=== PATIENT | male | born 1965 | race Caucasian/White ===

== ENCOUNTER → 2016-12-26 | Outpatient (REF) | payer OTHER ==
[~2016-12-26] MED LIST: APAP325T PO; ASPI81TA85 PO; CYCL10TA PO; DICL13PA TD; DICL75TA PO; EPIP0.3I2 IJ; ETOD30CA PO; ETOD400T PO; GABA600T PO; GLUC500T PO; IBUP200C PO; LYRI75CA PO; NEUR100C PO; NEUR600T PO; OMEP20CA3 PO; PRED10TA PO; RANI15TA PO; ROBA500T PO; ROBA750T4 PO; SKEL-29 PO; SOMA350T PO; TIZA4CAP3 PO; TRIA37.5 PO
[2016-12-26 19:26] LABS: BASO # 0.1 K/mm3 (0.0-0.2); BASO % 1.8 % (0.0-1.0); EOS # 0.1 K/mm3 (0.0-0.50); EOS % 1.3 % (0.0-3.0); LARGE UNSTAINED CELL # 0.1 K/mm3 (0.0-0.4); LARGE UNSTAINED CELL % 2.6 % (0.0-4.0); LYMPH # 1.6 K/mm3 (1.5-4.5); LYMPH % 27.3 % (24.0-44.0); MEAN CORPUSCULAR HGB CONC 33.3 g/dl (32.0-36.5); MEAN CORPUSCULAR VOLUME 87.1 fl (80.0-96.0); MONO # 0.5 K/mm3 (0.0-0.8); MONO % 8.4 % (0.0-5.0); NEUTROPHILS # 3.2 K/mm3 (1.8-7.7); NEUTROPHILS % 58.6 % (36.0-66.0); PLATELET COUNT, AUTOMATED 167 k/mm3 (150-450); RED CELL DISTRIBUTION WIDTH 13.4 % (11.5-14.5); WHITE BLOOD COUNT 5.5 K/mm3 (4.0-10.0)
[2016-12-26 20:00] LABS: ALBUMIN 3.9 GM/DL (3.2-5.2); ALBUMIN/GLOBULIN RATIO 1.26 (1.00-1.93); ALKALINE PHOSPHATASE 85 U/L (45-117); ALT/SGPT 55 U/L (12-78); ANION GAP 7 MEQ/L (8-16); AST/SGOT 34 U/L (15-37); BILIRUBIN,TOTAL 0.4 MG/DL (0.2-1.0); BLOOD UREA NITROGEN 13 MG/DL (7-18); CARBON DIOXIDE LEVEL 30 MEQ/L (21-32); CHLORIDE LEVEL 103 MEQ/L (98-107); CREATININE FOR GFR 0.87 MG/DL (0.70-1.30); GLOMERULAR FILTRATION RATE > 60.0 (>56); GLUCOSE, FASTING 76 MG/DL (70-105); PERCENT SATURATION 18.9 % (19.7-37.4); POTASSIUM SERUM 3.6 MEQ/L (3.5-5.1); SODIUM LEVEL 140 MEQ/L (136-145); TOTAL IRON BINDING CAPACITY 297 UG/DL (250-450)
[2016-12-26 20:49] LABS: ERYTHROCYTE SEDIMENTATION RATE 13 mm/hr (0-20)
[2016-12-29 00:06] LABS: Lyme Disease IgG/IgM Antibodie <0.91 ISR (0.00-0.90); Lyme Disease IgM Ab Quantitati <0.80 index (0.00-0.79)
== END ==
LOC: M LABDRAW1 16:54
PROVIDERS: ATTEND Internal Medicine Rheumatology
DX: M17.0 Bilateral primary osteoarthritis of knee (principal); M51.36 Other intervertebral disc degeneration, lumbar region; R53.83 Other fatigue; M35.9 Systemic involvement of connective tissue, unspecified; E83.110 Hereditary hemochromatosis

== ENCOUNTER → 2017-01-06 | Outpatient (CLI) | payer OTHER ==
--- NOTE | 2017-01-06 10:35 | REP ---
CT CERVICAL SPINE WITHOUT CONTRAST: HISTORY: Spondylosis. COMPARISON: MR 11/23/2016. Disc bulges are present at the C5-6 and C6-7 levels. These are better seen in the recent MR examination. There is minimal narrowing of the spinal canal. There is no other disc bulge or herniation. The neural foramina are patent. The C5-6 and C6-7 intervertebral discs are decreased in height consistent with disc degeneration. Anterior osteophytes are present on C4-7. There is no subluxation. IMPRESSION: There is cervical spondylosis at the C5-6 and C6-7 levels. Signed by Dc Armando MD 01/06/2017 10:50 A
== END | disposition home or self-care (01) ==
LOC: M RAD 09:45
PROVIDERS: ATTEND Neurological Surgery
DX: M47.892 Other spondylosis, cervical region (principal)

== ENCOUNTER → 2019-04-24 | Outpatient (CLI) | payer OTHER ==
[~2019-04-24] MED LIST changes: -APAP325T PO; +APAP325T4 PO; -GABA600T PO; +GABA600T4 PO; -IBUP200C PO; +IBUP200C25 PO; +PRED-351 PO; -PRED10TA PO; -SKEL-29 PO; +SKEL800T97 PO; +TIZA4CAP PO; -TIZA4CAP3 PO
--- NOTE | 2019-04-25 20:22 | ECHO ---
DATE OF PROCEDURE: 04/24/2019 REFERRING PHYSICIAN: Mango Salas MD REASON FOR ECHOCARDIOGRAM: Edema. PATIENT LOCATION: Outpatient. 2D MEASUREMENTS: IVS: 1.2 cm LV: 5.2 cm LVPW: 1.2 cm LA: 4.1 cm Aorta: 3.6 cm IVC: 2.0 cm DOPPLER MEASUREMENTS: Peak velocity across the aortic valve: 1.6 m/s Peak velocity across the LVOT: 1.4 m/s Mitral E: 0.95, Mitral A: 0.63 with a ratio of 1.5 Maximum tricuspid valve velocity: 2.8 m/s 2D COMMENTS: 1. Normal left ventricular size, wall thickness, and normal global left ventricular systolic function. The estimated left ventricular systolic ejection fraction is 65-70%. 2. Mildly enlarged left atrium. Normal right atrium and right ventricle. 3. The atrial septum appeared to be normal without evidence of defect or shunt. 4. Normal aortic root. 5. No pericardial effusion seen. 6. The aortic valve, mitral valve, and the tricuspid valve appeared to be normal. The pulmonic valve and proximal pulmonary artery branches also appeared to be normal in limited views. 7. The inferior vena cava was borderline enlarged. DOPPLER: No significant valvular abnormalities detected but mild tricuspid regurgitation. The calculated pulmonary artery systolic pressure varies between 30-40 mmHg. Assessment of the left vascular diastolic function appeared to be normal. IMPRESSION 1. Normal global left ventricular systolic and diastolic function. 2. Mild tricuspid regurgitation with mild pulmonary hypertension.
== END ==
LOC: M CARPUL 15:15
PROVIDERS: ATTEND Internal Medicine
DX: R60.0 Localized edema (principal); I07.1 Rheumatic tricuspid insufficiency; I27.20 Pulmonary hypertension, unspecified

== ENCOUNTER → 2025-10-15 | Outpatient (CLI) | payer OTHER ==
[~2025-10-15] MED LIST changes: -ASPI81TA85 PO; +ASPI81TA86 PO; +CYCL-707 PO; -CYCL10TA PO; +ETOD-234 PO; -ETOD400T PO; +GABA-1490 PO; -GABA600T4 PO; +OMEP1CAP73 PO; -OMEP20CA3 PO; +PROHANCE 279.3MG/ML 15ML VIAL As Ordered ONE; +PROHANCE 279.3MG/ML 5ML VIAL As Ordered ONE
== END ==
LOC: M RAD 16:15
PROVIDERS: ATTEND Neurological Surgery
DX: D32.0 Benign neoplasm of cerebral meninges (principal)